=== PATIENT | female | born 1960 | race Caucasian/White ===

== ENCOUNTER 2023-02-28 08:00 | Outpatient (RCR) | payer OTHER, SELFPAY | END 2023-06-28 23:59 | disposition home or self-care (01) | PROVIDERS: PCP Family Medicine; Visit Provider Orthopaedic Surgery | DX: S62.101D Fracture of unspecified carpal bone, right wrist, subsequent encounter for fracture with routine healing (principal); Z51.89 Encounter for other specified aftercare | CPT/HCPCS: 97110; 97140; 97165; L3808; X5282 ==

== ENCOUNTER 2024-04-12 18:01 | Emergency (ER) | payer OTHER, SELFPAY ==
--- OUTSIDE RECORDS SUMMARY | 2024-04-12 18:03 | XMS_ITS | Clinical Summary ---
Author Organization [facility] Address [address] [place] [id number] Care Team Providers Care Poultry Offal Worker Name Role Phone Pcp, No Primary Care Provider Unavailabl e Allergies No known active allergies Medications No known medications Active Problems Problem Noted Date Diagnosed Date s/p right wrist joint debrid ement and ulnar shortening osteotomy on 11/08/2022 11/02/2023 Closed fracture of lower end of right radius with routine healing 09/07/2022 Immunizations Name Administration Dates Next Due Td (Age >=7 Years) 07/31/2004 Tdap 08/05/2018 Social History Tobacco Use Types Packs/Day Years Used Date Smoking Tobacco: Every Day Cigarettes 1 49.1 Started: 1975 Smokeless Tobacco: Never Tobacco Cessation:Ready to Q uit: No; Counseling Given: No PHQ-2 Answer Date Recorded PHQ-2 TOTAL SCORE 0 11/04/2022 Social Connections Answer Date Recorded Frequency of Communication with Friends and Fami ly Not on file 07/15/2022 Comments No Sex and Gender Information Value Date Recorded Sex Assigned at Not on file Legal Sex Female 9:49 AM CDT Gender Identity Not on file Sexual Orientation Not on file Obstetrics History Last Filed Vital Signs Vital Sign Reading Time Taken Comments Blood Pressure 130/86 11/04/2022 3:18 PM CDT Pulse 76 11/04/2022 3:13 PM CDT Temperature 36.6 C (97.8 F) 07/11/2022 10:25 AM CDT Respiratory Rate 12 07/11/2022 10:25 AM CDT Oxygen Saturation 96% 11/04/2022 3:13 PM CDT Inhaled Oxygen Concentration - - Weight 67 kg (147 lb 12.8 oz) 11/04/2022 3:13 PM CDT Height 166.7 cm (5' 5.63) 11/04/2022 3:13 PM CD T Body Mass Index 24.13 11/04/2022 3:13 PM CDT Plan of Treatment Health Maintenance Due Date Last Done Comments Pneumococcal series for age 6-49 (1 of 2 - PCV) 1966 HIV for age 15-65 1975 Hepatitis C screening for age 18-79 1978 Pneumococcal series for age 50+ (1 of 2 - PCV) 1979 Pap test for age 21-65 1981 Colonoscopy through age 75 2005 Mammogram for age 45-[address] (for lung CA) age 50-80 2010 Zoster (shingles) series for age 50+ (1 of 2) 2010 COVID-19 vaccine series ( season) 2023 Influenza for age 50-64 10/22/2023 BMI (ht and wt on same day) for age 18+ 11/05/2023 0 11/04/2022 Depression screening for age 12+ 11/05/2023 11/05/19 23 Lipids for age 45-75 11/05/2027 11/04/2022 Tetanus booster 08/05/2028 08/05/2018, 07/31/2004 RSV vaccine for adults or pr egnancy (1 - 1-dose 75+ series) 2035 Tdap Completed 08/05/2018 Procedures Procedure Name Priority Date/Time Associated Diagnosis Comments LIPID PANEL W REFLEX MEASURED LDL Routine 11/04/2022 3:55 PM CDT Screening cholesterol level from Last 3 Months or Most Recently Relevant to Health Maintenance Results * (ABNORMAL) LIPID PANEL W REFLEX MEASURED LDL (11/04/2022 3:55 PM CDT) CHOLESTEROL,TOTAL 233(H) 100 - 199 mg/dL 11/05/2022 4:55 AM CDT [facility] Comment: Cholesterol, Total Reference Ranges Desirable <200 mg/dL Borderline 200-239 mg/dL High >=240 mg/dL TRIGLYCERIDES 181(H) <150 mg/dL 11/05/2022 4:55 AM CDT [facility] HDL CHOLESTEROL 75 >40 mg/dL 4:55 AM CDT [facility] NON-HDL CHOLESTEROL 158(H) <145 mg/dl 11/05/2022 4:55 AM CDT [facility] CHOL/HDL RATIO 3.11 <4.50 11/05/2022 4:55 AM CDT [facility] LDL CHOLESTEROL 122 <=130 mg/dL 11/05/2022 4:55 AM CDT [facility] VLDL CHOLESTEROL 36(H) <=30 mg/dL 11/05/2022 4:55 AM CDT [facility] PROVIDER ORDERED STATUS RANDOM 11/05/2022 4:55 AM CDT [facility] Blood BLOOD SPECIMEN / Unknown Venipuncture / Unknown 11/04/2022 3:55 PM CDT 11/04/2022 3:56 PM CDT us Gely [facility]MISTR[facility] Final [facility]u [facility] [address] [place] [phone], from Last 3 Months or Most Recently Relevant to Health Maintenance Insurance GRISEL HERNANDEZ [facility] Care Teams Poultry Offal Worker Relationship Specialty Start Date End Date Pcp, No . PCP - General 07/11/22
--- OUTSIDE RECORDS SUMMARY | 2024-04-12 18:03 | XMS_ITS | Clinical Summary ---
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 08/25/2009 Hand pain 07/31/2009 08/25/2009 Immunizations Name Administration Dates Next Due TDAP Vaccine (Adacel) 08/05/2018 Social History Tobacco Use Types Packs/Day Years Used Date Smoking Tobacco: Never Assessed Comments Unknown Sex and Gender Information Value Date Recorded Sex Assigned at Not on file 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
[2024-04-12 18:11] VITALS: BP 173/88; PULSE 76; RESP 16; TEMP 36.6; O2SAT 97; BMI 25.2
--- NOTE | 2024-04-12 18:30 | ED.GENADULT ---
HPI - General Adult General Chief complaint: Animal Bite Stated complaint: dog bite on eye Time Seen by Provider: 04/12/24 18:09 Source: patient Mode of arrival: ambulatory Limitations: no limitations History of Present Illness HPI narrative: 64-year-old female presenting today with right eye pain. Patient states that she was at work at [employer] and a dog reached up and nipped her face. She suffered a very small scratch on the upper and lower eyelids. Did think that she had any trauma to the eye, however she woke up this morning and she had mattering of the eye and a lot of discomfort. She denies any vision changes. She states that it feels like there is something in her eye. Related Data Home Medications ?Medication ?Instructions ?Recorded ?Confirmed No Known Home Medications 04/12/24 04/12/24 Allergies Allergy/AdvReac Type Severity Reaction Status Date / Time No Known Drug Allergies Allergy Verified 04/12/24 17:17 Review of Systems Status of ROS: Reports: 6 or more systems reviewed and unremarkable except as noted in History and below PFSH PFS Social History Smoking Status: Current every day smoker Exam Narrative: Exam Narrative: Well-nourished well-developed patient in no acute distress. Alert and oriented. Answers questions appropriately. Mood and affect are appropriate. Thoughts are goal oriented and rational. No tangential or magical thinking noted. Patient speaks in full sentences without needing to catch her breath. HEENT: Normocephalic . Pupils are equally round reactive to light. Extraocular muscles are intact. Conjunctivae are moist without any icterus noted. Injection noted of the right eye. Patient has a superficial abrasion of the lower eyelid, another by the eyebrow. Fluorescein examination reveals a corneal abrasion at 12:00 o'clock. Eyelids are inverted, no foreign objects visualized. Eyelids are swept with a Q-tip. Eye is irrigated. Skin: Well perfused. Const: Vital Signs, click to edit/add: Vital Signs - 24 hr 04/12/24 18:11 Temperature 97.9 F Pulse Rate [Pulse Oximeter] 76 Respiratory Rate 16 Blood Pressure [Ri ght Upper Arm] 173/88 H Pulse Oximetry 97 Course Vital Signs Vital signs: Initial Vital Signs Temperature 97.9 F 04/12/24 18:11 Temperature Source Temporal Artery Scan 04/12/24 18:11 Pulse Rate 76 04/12/24 18:11 Respiratory Rate 16 04/12/24 18:11 Blood Pressure 173/88 H 04/12/24 18:11 Blood Pressure Mean 116 H 04/12/24 18:11 Blood Pressure Position Sitting 04/12/24 18:11 Pulse Oximetry 97 04/12/24 18:11 Vital Signs Temperature 97.9 F 04/12/24 18:11 Pulse Rate 76 04/12/24 18:11 Respiratory Rate 16 04/12/24 18:11 Blood Pressure 173/88 H 04/12/24 18:11 Pulse Oximetry 97 04/12/24 18:11 Temperature 97.9 F 04/12/24 18:11 Pulse Rate 76 04/12/24 18:11 Respiratory Rate 16 04/12/24 18:11 Blood Pressure 173/88 H 04/12/24 18:11 Pulse Oximetry 97 04/12/24 18:11 Medical Decision Making MDM Narrative Medical decision making narrative: 64-year-old female with a corneal abrasion. Erythromycin ointment was applied today. She is to use this 4 times a day and follow up with Ophthalmology or Optometry next week. Discharge Plan Discharge Clinical Impression: Abrasion, corneal, Elevated blood pressure reading Patient Disposition: Home, Self-Care Condition: Stable Instructions: Corneal Abrasion (ED) Additional Instructions: Use antibiotic ointment 4 times per day for 5 days. Follow-up with eye doctor this coming week. Okay to use an eye patch if the eye is uncomfortable. Return to the emergency department if you are experiencing any changes in your vision. Your blood pressure was also elevated while you were in the ER today. You should follow-up with your primary care provider to have this rechecked. Prescriptions: No Action No Known Home Medications Follow Up/Referrals: Darren Ochoa MD [Primary Care Provider] - Stand Alone Forms: [employer] Info Instructions
--- OUTSIDE RECORDS SUMMARY | 2024-04-12 18:38 | XMS_ITS | Clinical Summary ---
Author Organization [facility] Address [address] [place] [id number] Care Team Providers Care Insect Control Inspector Name Role Phone Pcp, No Primary Care [...] - 199 mg/dL 11/05/2022 4:55 AM CDT [facility] Comment: Cholesterol, Total Reference Ranges Desirable <200 mg/dL Borderline 200-239 mg/dL High >=240 mg/dL TRIGLYCERIDES 181(H) <150 mg/dL 11/05/2022 4:55 AM CDT [facility] HDL CHOLESTEROL 75 >40 mg/dL 4:55 AM CDT [facility] NON-HDL CHOLESTEROL 158(H) <145 mg/dl 11/05/2022 4:55 AM CDT [facility] CHOL/HDL RATIO 3.11 <4.50 11/05/2022 4:55 AM CDT [facility] LDL CHOLESTEROL 122 <=130 mg/dL 11/05/2022 4:55 AM CDT [facility] VLDL CHOLESTEROL 36(H) <=30 mg/dL 11/05/2022 4:55 AM CDT [facility] PROVIDER ORDERED STATUS RANDOM 11/05/2022 4:55 AM CDT [facility] Blood BLOOD SPECIMEN / Unknown Venipuncture / Unknown 11/04/2022 3:55 PM CDT 11/04/2022 3:56 PM CDT us Gely [facility] CHEMISTRY Final [facility] [address] [place] [phone], from Last 3 Months or Most Recently Relevant to Health Maintenance Insurance GRISEL HERNANDEZ [facility] Care Teams Insect Control Inspector Relationship Specialty Start Date End Date Pcp, No . PCP - General 07/11/22
--- OUTSIDE RECORDS SUMMARY | 2024-04-12 18:38 | XMS_ITS | Clinical Summary ---
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
== END 2024-04-12 18:45 | disposition home or self-care (01) ==
PROVIDERS: Emergency Provider Family Medicine; PCP Family Medicine
DX: S05.01XA Injury of conjunctiva and corneal abrasion without foreign body, right eye, initial encounter (principal); W54.0XXA Bitten by dog, initial encounter; Y99.0 Civilian activity done for income or pay
CPT/HCPCS: 99283; 99284; A9270